=== PATIENT | female | born 1995 | race Caucasian/White ===

== ENCOUNTER 2019-12-17 18:53 | Emergency (ER) | payer MEDICAID, SELFPAY ==
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
[2019-12-17 19:18] VITALS: BP 130/84; PULSE 93; RESP 16; TEMP 37.1; O2SAT 100; BMI 37.3
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
[2019-12-17 19:25] VITALS: PULSE 86
[2019-12-17 20:45] VITALS: BP 123/75; PULSE 86; RESP 18; O2SAT 99
== END 2019-12-17 20:40 | disposition home or self-care (01) ==
PROVIDERS: Emergency Provider Physician Assistant; PCP Physician Assistant
DX: S90.32XA Contusion of left foot, initial encounter (principal); S90.31XA Contusion of right foot, initial encounter; W31.89XA Contact with other specified machinery, initial encounter
CPT/HCPCS: 12345; 73610; 73630; 99281

== ENCOUNTER 2020-07-10 11:31 | Outpatient (CLI) | payer MEDICAID, SELFPAY ==
--- NOTE | 2020-07-10 11:37 | MR_ITS ---
WS: [id number] MRI LUMBAR SPINE NONCONTRAST TECHNIQUE: Sagittal T1, T2 and STIR imaging. Axial T1 and T2 imaging. CLINICAL INFORMATION: LOW BACK PAIN W/RADIATION COMPARISON: None. FINDINGS: Mild lumbar curve. No acute compression. No high-grade central canal stenosis. Small amount of edema anterior superior corner T12 likely degenerative or inflammatory. No compression fractures. Tiny shal low protrusions in the lower thoracic spine at T10-T11 and T11-12. L1-L2: Normal. L2-L3: No significant disc bulging. Mild facet arthropathy. Spinal canal and foramen are patent. L3-L4: Slight annular bulging. Slight narrowing of the subarticular recess bilaterally. Mild facet ar thropathy. Spinal canal and foramen are patent. L4-L5: Mild annular bulging. Narrowing of the subarticular recess bilaterally. Moderate facet arthrop athy. Slight impingement on the traversing left L5 nerve root. Foramen are patent. L5-S1: Minimal annular bulging. Spinal canal and foramen are patent. Moderate facet arthropathy. Small central protrusions in the mid thoracic spine seen on the java android developer imaging more prominent at T5-6, T6-7, T7-8, T9-T10, and T10-11. This could be further evaluated with thoracic spine MRI if indicated . MR/MR lumbar spine wo con* [id number] IMPRESSION: 1. Mild lumbar curve. No acute compression. No high-grade central canal stenos is. 2. Mild annular bulging L4-5 with slight narrowing of the left greater than ri ght subarticular recess. Slight encroachment traversing left L5 nerve root. 3. Mild annular bulging L3-4 with slight narrowing of the subarticular recess bilaterally. 4. Moderate facet arthropathy L3-L5. 5. Small central protrusions in the mid thoracic spine seen on the java android developer imagi ng more prominent at T5-6, T6-7, T7-8, T9-T10, and T10-11. This could be furthe r evaluated with thoracic spine MRI if indicated.
== END 2020-07-10 11:32 | disposition home or self-care (01) ==
LOC: RADSHAW 11:36
PROVIDERS: PCP Physician Assistant; Visit Provider Physician Assistant
DX: M54.16 Radiculopathy, lumbar region (principal); M51.24 Other intervertebral disc displacement, thoracic region; M47.816 Spondylosis without myelopathy or radiculopathy, lumbar region
CPT/HCPCS: 72148

== ENCOUNTER → 2020-07-25 08:50 | Outpatient (BNVA) | payer MEDICAID, SELFPAY | PROVIDERS: PCP Physician Assistant; Referring Provider Physician Assistant; Visit Provider Anesthesiology Pain Medicine | DX: M54.9 Dorsalgia, unspecified (principal); M54.42 Lumbago with sciatica, left side; M47.816 Spondylosis without myelopathy or radiculopathy, lumbar region; M51.36 Other intervertebral disc degeneration, lumbar region; F17.210 Nicotine dependence, cigarettes, uncomplicated | CPT/HCPCS: 99205 ==

== ENCOUNTER → 2020-08-05 13:59 | Outpatient (BNVA) | payer MEDICAID, SELFPAY | PROVIDERS: PCP Physician Assistant; Visit Provider Anesthesiology Pain Medicine | DX: M47.816 Spondylosis without myelopathy or radiculopathy, lumbar region (principal); M54.9 Dorsalgia, unspecified; F17.210 Nicotine dependence, cigarettes, uncomplicated | CPT/HCPCS: 64493; 64494; 64495; J1040; J3490 ==

== ENCOUNTER → 2020-08-13 12:57 | Outpatient (BNVA) | payer MEDICAID, SELFPAY | PROVIDERS: PCP Physician Assistant; Referring Provider Physician Assistant; Visit Provider Podiatrist Foot & Ankle Surgery | DX: M25.572 Pain in left ankle and joints of left foot (principal) | CPT/HCPCS: 73630 ==

== ENCOUNTER 2020-09-24 12:01 | Outpatient (CLI) | payer MEDICAID, SELFPAY ==
[2020-09-24 13:06] LABS: Vitamin B12 246 pg/mL (232-1245)
== END 2020-09-24 12:02 | disposition home or self-care (01) ==
PROVIDERS: PCP Physician Assistant; Visit Provider Podiatrist Foot & Ankle Surgery
DX: G62.9 Polyneuropathy, unspecified (principal)
CPT/HCPCS: 36415; 82607

== ENCOUNTER → 2020-10-28 14:11 | Outpatient (BNVA) | payer MEDICAID, SELFPAY | PROVIDERS: PCP Physician Assistant; Referring Provider Podiatrist Foot & Ankle Surgery; Visit Provider Specialist | DX: R20.0 Anesthesia of skin (principal); R20.2 Paresthesia of skin; M79.671 Pain in right foot; M79.672 Pain in left foot; F17.200 Nicotine dependence, unspecified, uncomplicated | CPT/HCPCS: 95909 ==

== ENCOUNTER → 2020-11-07 09:16 | Outpatient (BNVA) | payer MEDICAID, SELFPAY | PROVIDERS: PCP Physician Assistant; Referring Provider Podiatrist Foot & Ankle Surgery; Visit Provider Specialist | DX: G62.89 Other specified polyneuropathies (principal); M79.671 Pain in right foot; M79.672 Pain in left foot; F17.200 Nicotine dependence, unspecified, uncomplicated | CPT/HCPCS: 95860; 99202 ==

== ENCOUNTER 2021-07-30 06:49 | Outpatient (CLI) | payer BC, MEDICAID, SELFPAY ==
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
== END 2021-07-30 06:50 | disposition home or self-care (01) ==
LOC: RAD 06:52
PROVIDERS: PCP Physician Assistant; Visit Provider Podiatrist Foot & Ankle Surgery
DX: M79.671 Pain in right foot (principal); M21.41 Flat foot [pes planus] (acquired), right foot; M77.31 Calcaneal spur, right foot
CPT/HCPCS: 73718

== ENCOUNTER → 2021-08-18 14:54 | Outpatient (BNVA) | payer BC, MEDICAID, SELFPAY | PROVIDERS: PCP Physician Assistant; Referring Provider Physician Assistant; Visit Provider Specialist | DX: R56.9 Unspecified convulsions (principal) | CPT/HCPCS: 95816 ==

== ENCOUNTER → 2021-08-20 13:14 | Outpatient (BNVA) | payer BC, MEDICAID, SELFPAY | PROVIDERS: PCP Physician Assistant; Visit Provider Podiatrist Foot & Ankle Surgery | DX: M79.671 Pain in right foot (principal); M21.611 Bunion of right foot; M21.612 Bunion of left foot; M79.672 Pain in left foot | CPT/HCPCS: 99213; 99214 ==

== ENCOUNTER 2021-09-04 10:22 | Outpatient (CLI) | payer BC, MEDICAID, SELFPAY ==
--- NOTE | 2021-09-04 10:42 | CT_ITS ---
WS: [id number] CT HEAD TECHNIQUE: Noncontrast and contrast-enhanced CT of the head. CLINICAL INFORMATION: SEIZURE LIKE ACTIVITY COMPARISON: None. DLP: [address] scans at [facility] use at least one of these dose optimization techniques: automated e xposure control; mA and/or kV adjustment per patient size (includes targeted exams where dose is matc hed to clinical indication); or iterative reconstruction. FINDINGS: No evidence of intracranial hemorrhage or mass effect. Ventricular system and basal cisterns are gerardo nt. No hydrocephalus. Normal garcia-white differentiation. Slight splaying of the fornices with thickening at the foramen of Monro. Enhancing focus in this area measuring 4.5 x 5.0 mm suspicious for colloid cyst. No hydrocephalus. Recommend further evaluation w ith MRI head without and with gadolinium enhancement for better anatomic detail. Paranasal sinuses and mastoid air cells well aerated. Normal visualized soft tissues. Incidental slig htly low-lying cerebellar tonsils. Normal 4th ventricle. CT/CT head wo/w con [id number] IMPRESSION: 1. Slight splaying columns of the fornices with slight soft tissue thickening in this area. This is more apparent on the post contrast imaging measuring 5 x 4.5 mm suspicious for a tiny colloid cyst. Recommend further evaluation with MR I without and with gadolinium enhancement and MRA head for better anatomic deta il. 2. No hydrocephalus. 3. No other suspicious findings.
[2021-09-04] MEDS: iohexol 350 mg/mL 100 mL Btl IV (11:52)
== END 2021-09-04 10:23 | disposition home or self-care (01) ==
LOC: RAD 10:23
PROVIDERS: PCP Physician Assistant; Visit Provider Physician Assistant
DX: R56.9 Unspecified convulsions (principal)
CPT/HCPCS: 70470

== ENCOUNTER 2021-09-24 18:39 | Emergency (ER) | payer BC, MEDICAID, SELFPAY ==
--- NOTE | 2021-09-24 18:40 | CTR_ITS ---
PROCEDURE INFORMATION: Exam: CT Head Without Contrast Exam date and time: 09/24/2021 6:57 PM Age: 26 years old Clinical indication: Pain; Headache; Patient HX: C/O migraine with dizziness. History of colloid cyst. ; Additional info: [place] TECHNIQUE: Imaging protocol: Computed tomography of the head without contrast. Radiation optimization: All CT scans at this facility use at least one of these dose optimization techniques: automated exposure control; mA and/or kV adjustment per patient size (includes targeted exams where dose is matched to clinical indication); or iterative reconstruction. COMPARISON: CT head wo/w con [id number] 09/04/2021 11:18 AM RADIATION DOSE METRICS: Total DLP (mGy-cm): 758.83 FINDINGS: Brain: Normal. No hemorrhage. Unremarkable white matter. No mass effect. Cerebral ventricles: No ventriculomegaly. Paranasal sinuses: Visualized sinuses are unremarkable. No fluid levels. Mastoid air cells: Visualized mastoid air cells are well aerated. Bones/joints: Unremarkable. No acute fracture. Soft tissues: Unremarkable. CT/CT head wo con* [id number] IMPRESSION: No acute intracranial abnormality.
[2021-09-24 19:21] VITALS: BP 160/92; PULSE 75; RESP 12; TEMP 37.3; O2SAT 98; BMI 39.6
--- NOTE | 2021-09-24 20:55 | W.ED.GENADLT ---
HPI - General Adult General: Chief complaint: Eye Problems Stated complaint: loss of vison/severe headache/nausea Time Seen by Provider: 09/24/21 20:20 History of Present Illness: 38-year-old female history of brain cyst presenting to the emergency room for evaluation of visual changes x48 hours. Patient reports transient bilateral hemianopsia for 15 minutes, symptoms of halos around both eyes, blurriness of vision and diplopia x 2 days. She denies any other neurological findings. Patient denies any trauma or injury to the head. Patient tells me at present presently she only has blurriness of vision but does not have those other complaints. Patient denies headache but reports nausea without vomiting. She has no other neurological complaints. She denies nauesea/vomiting, fever/chill, chest pain, shortness of breath, abdominal pain, dysuria/hematuria/polyuria, diarrhea/melena/hematochezia. Onset: 48 hrs ago Duration:transient lasting for 15 minutes at a time Location:home Severity:moderate Associated symptoms: Deny chest pain, dyspnea, nausea, rash, palpitations or vomiting Review of Systems Const: Denies: fever(s) or chills Eyes: Denies: change in vision ENMT: Reports: other (+transient diplopia, visual bluriness temporal hemianopsia b/l); Denies: mouth pain Card: Denies: chest pain or palpitations Resp: Denies: dyspnea or non-productive cough GI: Denies: abdominal pain, nausea, vomiting or diarrhea : Denies: dysuria Musc: Denies: extremity pain Skin/Breast: Denies: rash or new lesions Neuro: Denies: weakness in extremities Psych: Reports: other (Normal mood) Corona/Lymph: Denies: easy bruising [facility] ED PFSH: Medical History Brain cyst Family History Mother Bipolar 1 disorder Depression Father Degenerative disc disease, thoracic Alcohol abuse Methamphetamine abuse Social History Smoking and tobacco status: never smoked Alcohol intake: never Desire information about substance/drug rehabilitation?: No History of recent travel: No Physical Exam Const: COMMON NORMALS: alert HENMT: COMMON NORMALS: atraumatic HEAD & SCALP: atraumatic MOUTH: moist mucous membranes not abnormal Eye: COMMON NORMALS: EOMs intact bilaterally and conjunctivae normal CONJUNCTIVA: Yes conjunctivae normal OTHER: 20/40 b/l with prescriptions Neck/C-Spine: COMMON NORMALS: full ROM and supple Resp: COMMON NORMALS: normal respiratory effort and clear to auscultation bilaterally AUSCULTATION: clear to auscultation bilaterally Cardio: COMMON NORMALS: regular rate RATE: regular rate GI: COMMON NORMALS: Soft to palpation and non-tender PALPATION: Yes Soft to palpation Extremity: COMMON NORMALS: full ROM Neuro: SENSORIUM/ORIENTATION: Yes alert MOTOR EXAM: No Abnormal motor strength present and Other motor observations present (no focal motor deficits) OTHER: Mental status? Awake, alert, and oriented to self, year, month, location, and situation.? Following simple axial and appendicular commands.? Has appropriate fund of knowledge, comprehension, and insight.? Able to recall and understands pertinent aspects of medical history and current treatment status.? ? Language? Speech is fluent without word-finding difficulties.? 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 ? Cranial nerves? 2,3,4,6: PERRL, EOMI with no nystagmus. 5: Intact sensation to light touch, symmetric? 7: Smile symmetrical, no facial droop.? 8: Hearing grossly intact.? 9,10: Normal palate movement.? 11: Normal strength in trapezius bilaterally 12: Tongue protrudes midline.? ? Motor examination? Normal bulk & tone. Strength as follows (R/L): Delts (5/5), Biceps (5/5), Triceps (5/5), Wrist ext (5/5), hip flexors (5/5), plantarflexors (5/5), dorsiflexors (5/5). ? Sensation? Light Touch: Grossly intact and equal in upper and lower extremities bilaterally? Romberg: Negative.? Distal joint position sense intact ? Coordination? Isbdjv-lg-dhvd-finger movements intact without dysmetria or past-pointing.? Rapid fingertaps: preserved amplitude without decriment.? No tremor, myoclonus or truncal ataxia.? ? Gait/stance? Steady, normal narrow base gait with appropriate arm swing and turning.? Tandem gait without hesitation or loss of balance. Psych: COMMON NORMALS: speech normal SPEECH: Yes normal speech MOOD & AFFECT: Yes euthymic mood Course Vital Signs: Vital signs: Vital Signs Temperature 99.1 F 09/24/21 19:21 Pulse Rate 75 09/24/21 19:21 Respiratory Rate 12 09/24/21 19:21 Blood Pressure 160/92 09/24/21 19:21 Pulse Oximetry 98 09/24/21 19:21 MDM - General Adult Medical Decision Making 46-year-old female with history of brain cyst presents emergency room for evaluation of visual complaints including halos around the eyes, blurriness of vision, transient bitemporal hemianopsia x48 hrs. Neuro exam is intact. Visual acuity is 20/40 b/l. CT heed negative for any acute findings. I discussed case with Darell Holden who will tells that he would be agreeable to see patient at 830 to determine if patient has papilledema or other emergent occular causes of symptoms. She is given strict return precaution for any signs of visual blindness, diplopia, worsening visual symptoms, or any new external complaints Disposition: Discharge. Patient counseled regarding diagnostic impression, treatment plan. Patient given ED strict return precautions to return for continuation, worsening, or development of new symptoms. Instructed to f/u w/ Opthalmology regarding symptoms today. Patient verbalized understanding. Lab Data Radiology Impressions Head CT 09/24/21 18:40 IMPRESSION: No acute intracranial abnormality. Imaging Data Other Imaging: Radiologist's impression: [address] [place] [address] CT Scan Report Signed Patient: Dianna Lucero Unit #: [id number] : 1995 Age/Sex: 26 / F ADM Date: 09/24/21 Loc: ER Room/Bed: Attending Dr: Ordering Provider/Ordering MD: Melvin Chamberlain MD Date of Service: 09/24/21 Procedure(s): CT head wo con* [id number] Accession Number(s): [id number] Report Number: [id number] PROCEDURE INFORMATION: Exam: CT Head Without Contrast Exam date and time: 09/24/2021 6:57 PM Age: 26 years old Clinical indication: Pain; Headache; Patient HX: C/O migraine with dizziness. History of colloid cyst. ; Additional info: [place] TECHNIQUE: Imaging protocol: Computed tomography of the head without contrast. Radiation optimization: All CT scans at this facility use at least one of these dose optimization techniques: automated exposure control; mA and/or kV adjustment per patient size (includes targeted exams where dose is matched to clinical indication); or iterative reconstruction. COMPARISON: CT head wo/w con [id number] 09/04/2021 11:18 AM RADIATION DOSE METRICS: Total DLP (mGy-cm): 758.83 FINDINGS: Brain: Normal. No hemorrhage. Unremarkable white matter. No mass effect. Cerebral ventricles: No ventriculomegaly. Paranasal sinuses: Visualized sinuses are unremarkable. No fluid levels. Mastoid air cells: Visualized mastoid air cells are well aerated. Bones/joints: Unremarkable. No acute fracture. Soft tissues: Unremarkable. CT/CT head wo con* [id number] IMPRESSION: No acute intracranial abnormality. ? Dictated By: Luis Antonio Blake DO Signed By: Luis Antonio Blake DO Signed Date/Time: 09/24/211925 DD/ 56 Discharge Plan Discharge Patient Disposition: Home Clinical Impression: Visual blurriness, [place] Condition: Stable Prescriptions: No Action mecobalamin (vitamin B12) 10,000 mcg recon soln 10,000 mcg SUBCUT .MONTHLY 0RF Lexapro 20 mg Tablet 20 mg PO BEDTIME 0RF Discharge Orders: Discharge ED (Routine); Ordered 09/24/21 Ordered By: Case Leon Referrals: Leann Griffin PA [Primary Care Provider] - Discharge Diet: Advance as tolerated Discharge Activity: Increase activity as tolerated Activity Restrictions/Additional Instructions: Please follow-up tomorrow morning at 8:30am: [facility] [address] (next to ambulatory surgery) Please follow up with Darell Holden at 8:30am His office nuer is [phone] Come back to the emergency room he had double vision, vision loss, visual field deficits, or any new or concerning complaints Coding Level of Care Code ED Medical Assistant Ob Gyn for Ellen Fwd Exam Comprehensive
[2021-09-24 22:36] VITALS: PULSE 65; RESP 16; O2SAT 99
== END 2021-09-24 22:37 | disposition home or self-care (01) ==
PROVIDERS: Emergency Provider Emergency Medicine; PCP Physician Assistant
DX: H53.8 Other visual disturbances (principal); H53.459 Other localized visual field defect, unspecified eye
CPT/HCPCS: 70450; 99283

== ENCOUNTER 2021-10-13 14:36 | Outpatient (CLI) | payer BC, MEDICAID, SELFPAY ==
--- NOTE | 2021-10-13 14:45 | MR_ITS ---
WS: [id number] MRA HEAD TECHNIQUE: Axial 3-D TOF images obtained with axial images and axial, sagittal, and coronal 2-D refor matted images. CLINICAL INFORMATION: COLLOID CYST OF BRAIN COMPARISON: None. FINDINGS: Distal vertebral arteries are patent. Basilar artery is patent. Normal vascularity to the OUTSIDE SALES INSPECTOR territo ry bilaterally. Patent RIGHT posterior communicating artery. Both ICAs are patent at the skull base. Normal vascularity to the RAKEL and MCA territories bilaterally . No evidence of high-grade proximal stenosis or aneurysm. MR/MR angio head wo con [id number] IMPRESSION: 1. Normal intracranial MRA. 2. No evidence of flow-limiting stenosis or aneurysm.
--- NOTE | 2021-10-13 14:45 | MR_ITS ---
WS: [id number] MRI HEAD WITH CONTRAST TECHNIQUE: Sagittal T1, T2 axial, T2 axial FLAIR, axial susceptibility weighted imaging, axial diffus ion weighted images, and coronal T2 images were obtained. Pre and post-T1 axial and post T1 coronal i mages. ADC and FSPGR images. CLINICAL INFORMATION: COLLOID CYST OF BRAIN COMPARISON: CT September 04, 2021 FINDINGS: No evidence of mass or lesion at the foramen of Gann. Prominent vascularity and choroid p kamaljit in this area accounting for findings on the prior CT. No hydrocephalus. No suspicious findings. No evidence restricted diffusion to suggest acute ischemia. Ventricular system and basal cisterns are patent. 2 or 3 tiny foci of T2 hyperintensity in the periventricular and subcortical white matter of doubtful clinical significance but can be seen with migraine headaches. Normal posterior fossa. Norm al vascular flow voids at the skull base. No extra-axial fluid collections. No evidence of mass or ma ss effect. Mild mucosal thickening ethmoid air cells. Small amount of fluid LEFT maxillary sinus. Vis ualized orbits are normal. Retention cysts in the posterior nasopharynx. No hemosiderin on susceptibly weighted images. Normal optic chiasm and pituitary infundibulum. Tempor al lobes and hippocampal formations are normal in appearance. Normal cavernous sinuses and Meckel's c ave. No abnormal intracranial enhancement. Dural venous sinuses appear normal. MR/MR head wo/w con [id number] IMPRESSION: 1. Previously described possible colloid cyst described on CT is not seen toda y. Prominent vascularity and choroid plexus in this area accounts for the findi ngs on CT. Foramen of Monro is normal in appearance today. No suspicious findin gs. 2. 2 or 3 tiny foci of T2 hyperintensity in the periventricular and subcortica l white matter of doubtful clinical significance but can be seen with migraine headaches. 3. No hemosiderin on susceptibly weighted images. 4. No abnormal gadolinium enhancement. 5. Small amount of fluid in the LEFT maxillary sinus. 6. No other significant findings.
== END 2021-10-13 14:37 | disposition home or self-care (01) ==
PROVIDERS: PCP Physician Assistant; Visit Provider Physician Assistant
DX: D33.2 Benign neoplasm of brain, unspecified (principal)
CPT/HCPCS: 70544; 70553

== ENCOUNTER → 2021-11-19 10:31 | Outpatient (BNVA) | payer BC, MEDICAID, SELFPAY | PROVIDERS: PCP Physician Assistant; Visit Provider Podiatrist Foot & Ankle Surgery | DX: M21.611 Bunion of right foot (principal); M21.612 Bunion of left foot | CPT/HCPCS: 99213 ==

== ENCOUNTER → 2022-02-18 13:29 | Outpatient (BNVA) | payer BC, MEDICAID, SELFPAY | PROVIDERS: PCP Physician Assistant; Visit Provider Nurse Practitioner Women's Health | DX: O09.291 Supervision of pregnancy with other poor reproductive or obstetric history, first trimester; Z3A.00 Weeks of gestation of pregnancy not specified | CPT/HCPCS: 81025 ==

== ENCOUNTER → 2022-04-20 10:00 | Outpatient (BNVA) | payer BC, MEDICAID, SELFPAY | PROVIDERS: PCP Physician Assistant; Visit Provider Obstetrics & Gynecology | DX: O09.899 Supervision of other high risk pregnancies, unspecified trimester (principal) | CPT/HCPCS: 80307; 81000; 82950; 84443; 85027; 86592; 86762; 86803; 86850; 86900; 87086; 87340; 87491; 87591; 87661; 87806; 88175 ==

== ENCOUNTER → 2022-05-29 07:51 | Outpatient (BNVA) | payer BC, MEDICAID, SELFPAY | PROVIDERS: PCP Physician Assistant; Visit Provider Obstetrics & Gynecology | DX: O09.899 Supervision of other high risk pregnancies, unspecified trimester (principal); Z3A.00 Weeks of gestation of pregnancy not specified | CPT/HCPCS: 81000 ==

== ENCOUNTER → 2022-06-29 08:00 | Outpatient (BNVA) | payer BC, MEDICAID, SELFPAY | PROVIDERS: PCP Physician Assistant; Visit Provider Nurse Practitioner Women's Health | DX: O09.899 Supervision of other high risk pregnancies, unspecified trimester (principal); O09.291 Supervision of pregnancy with other poor reproductive or obstetric history, first trimester; O34.219 Maternal care for unspecified type scar from previous cesarean delivery; F31.9 Bipolar disorder, unspecified; R56.9 Unspecified convulsions; J45.909 Unspecified asthma, uncomplicated; O99.210 Obesity complicating pregnancy, unspecified trimester; O99.320 Drug use complicating pregnancy, unspecified trimester; Z3A.00 Weeks of gestation of pregnancy not specified | CPT/HCPCS: 81000 ==

== ENCOUNTER → 2022-07-27 11:47 | Outpatient (BNVA) | payer BC, MEDICAID, SELFPAY | PROVIDERS: PCP Physician Assistant; Visit Provider Obstetrics & Gynecology | DX: O09.899 Supervision of other high risk pregnancies, unspecified trimester (principal) | CPT/HCPCS: 81000; 82950; 85025; 87086 ==

== ENCOUNTER → 2022-08-10 09:59 | Outpatient (BNVA) | payer BC, MEDICAID, SELFPAY | PROVIDERS: PCP Physician Assistant; Visit Provider Obstetrics & Gynecology | DX: O09.899 Supervision of other high risk pregnancies, unspecified trimester (principal); R82.90 Unspecified abnormal findings in urine; Z3A.00 Weeks of gestation of pregnancy not specified | CPT/HCPCS: 81000; 87086 ==

== ENCOUNTER → 2022-08-24 13:52 | Outpatient (BNVA) | payer BC, MEDICAID, SELFPAY | PROVIDERS: PCP Physician Assistant; Visit Provider Obstetrics & Gynecology | DX: O09.899 Supervision of other high risk pregnancies, unspecified trimester (principal); O99.210 Obesity complicating pregnancy, unspecified trimester | CPT/HCPCS: 81000; 85025 ==

== ENCOUNTER → 2022-09-07 08:56 | Outpatient (BNVA) | payer BC, MEDICAID, SELFPAY | PROVIDERS: PCP Physician Assistant; Visit Provider Obstetrics & Gynecology | DX: O09.899 Supervision of other high risk pregnancies, unspecified trimester (principal); Z3A.30 30 weeks gestation of pregnancy | CPT/HCPCS: 81000 ==

== ENCOUNTER → 2022-09-14 14:20 | Outpatient (BNVA) | payer BC, MEDICAID, SELFPAY | PROVIDERS: PCP Physician Assistant; Visit Provider Obstetrics & Gynecology | DX: O09.899 Supervision of other high risk pregnancies, unspecified trimester (principal); Z3A.00 Weeks of gestation of pregnancy not specified | CPT/HCPCS: 81000; 87081 ==

== ENCOUNTER 2022-09-15 13:30 | Outpatient (CLI) | payer BC, MEDICAID, SELFPAY ==
[2022-09-15] VITALS (25 sets, daily range): BP systolic 133–194; BP diastolic 68–106; PULSE 54–86; TEMP 36.1; BMI 40.0
[2022-09-15] MEDS: lactated ringers 1,000 ML 999 ML IV (14:35)
[2022-09-15 14:46] LABS: Basophils # 0.1 10^3/uL (0.0-0.1); Basophils % 0.4 %; Eosinophils # 0.1 10^3/uL (0.0-0.8); Eosinophils % 0.5 %; Hematocrit 35.7 % (37.0-47.0); Hemoglobin 12.4 g/dL (11.5-15.3); Lymphocytes # 2.5 10^3/uL (0.8-4.8); Lymphocytes % 17.8 %; Mean Corpuscular HGB Conc 34.7 g/dL (30.0-36.0); Mean Corpuscular Hemoglobin 30.2 pg (28.0-34.0); Mean Corpuscular Volume 87.1 fl (81-99); Mean Platelet Volume 10.3 fL (7.4-10.4); Monocytes # 0.5 10^3/uL (0.2-0.9); Monocytes % 3.8 %; Neutrophils # 10.76 10^3/uL (1.8-7.7); Nucleated Red Blood Cells % 0 %; Platelet Count 229 10^3/cmm (130-400); Red Cell Distribution Width 12.5 % (12.1-15.1)
[2022-09-15 15:08] LABS: Alanine Aminotransferase 9 U/L (0-33); Albumin Level 3.5 g/dL (3.5-5.2); Alkaline Phosphatase 180 U/L (35-105); Anion Gap 14.2 (5-19); Aspartate Amino Transferase 13 U/L (0-32); Blood Urea Nitrogen 4 mg/dL (6-20); Calcium 8.1 mg/dL (8.5-10.5); Carbon Dioxide 20 mmol/L (22-29); Chloride 104 mmol/L (98-107); Globulin 2.8 g/dL (1.3-4.6); Glomerular Filtration Rate 188.7 mL/min (90-130); Glucose 77 mg/dL (65-115); Osmolality Calculated 276 mOsm/kg (285-295); Potassium 3.2 mmol/L (3.5-5.1); Sodium 135 mmol/L (136-145); Total Bilirubin 0.3 mg/dL (0.15-1.2); Total Protein 6.3 g/dL (6.6-8.7); Uric Acid 3.1 mg/dL (2.4-5.7)
[2022-09-15 16:03] LABS: Urine Creatinine 148 mg/dL (28-217)
[2022-09-15 16:06] LABS: Urine Protein Random 45 mg/dL
[2022-09-15 16:15] LABS: Blood Urine Neg (Negative); Glucose Urine UA Norm (Normal); Ketones Urine Negative (Negative); Nitrate Urine Negative (Negative); Protein Urine 1+ (Negative); Urine Appearance Clear (CLEAR); Urine Color Yellow (Yellow); pH Urine 6.5 (5-7)
[2022-09-15 16:16] LABS: Add Urine Culture? No; Add Urine Microscopic? YES; Bacteria Urine TRACE /hpf; Bilirubin Urine Neg (Negative); Leukocyte Esterase Urine Negative (Negative); Mucus Urine 1+ /hpf; RBC Urine 0-4 /hpf (0-2); Squamous Epithelial Cell Urine 0-4 /hpf (0-5); Urobilinogen Urine 1 mg/dL (Negative); WBC Urine 0-4 /hpf (0-5)
[2022-09-15] MEDS: dextrose 5%-lactated ringers 1,000 ML 125 ML IV (16:53)
[2022-09-15] MEDS: labetalol 5 mg/mL SDV 20mL 20 MG IVP (16:53)
[2022-09-15] MEDS: magnesium sulfate premix 4 GM/100 ML PREMIX IV (17:05)
--- NOTE | 2022-09-15 17:06 | P.TNLD_ITS ---
OB L&D Triage Visit Information: Date of evaluation: 10/01/22 Comments/Additional reason(s) for visit: Mrs. Marquez 27-year-old female with an estimated gestational age at 36+3. Came to L&D triage due to elevated blood pressures. Blood pressures noted in the severe range. Preeclampsia work-up ordered as noted below. Evaluation: Baseline heart rate: 140 Variability: Moderate (11-25) monitor accelerations: Present 15x15 monitor decelerations: None Cervical dilation (cm): 0 Cervical effacement (%): 0 station: -5 Laboratory results: Laboratory Tests 09/15/22 09/15/22 09/15/22 14:10 14:10 14:10 WBC 14.0 H RBC 4.10 Hgb 12.4 Hct 35.7 L MCV 87.1 MCH 30.2 MCHC 34.7 RDW 12.5 Plt Count 229 MPV 10.3 Neut % (Auto) 77.0 Lymph % (Auto) 17.8 Casey % (Auto) 3.8 Eos % (Auto) 0.5 Baso % (Auto) 0.4 Neut # (Auto) 10.76 H Lymph # (Auto) 2.5 Casey # (Auto) 0.5 Eos # (Auto) 0.1 Baso # (Auto) 0.1 Nucleated RBC % (a uto) 0 Nucleated RBCs # 0.0 Sodium Potassium Chloride Carbon Dioxide Anion Gap BUN Creatinine GFR Calculation Glucose Calculated Osmolal ity Uric Acid Calcium Total Bilirubin AST ALT Alkaline Phosphata se Total Protein Albumin Globulin Urine Color Yellow Urine Appearance Clear Urine pH 6.5 Ur Specific Gravit y 1.020 Urine Protein 1+ H Urine Glucose (UA) Norm Urine Ketones Negative Urine Blood Neg Urine Nitrate Negative Urine Bilirubin Neg Urine Urobilinogen 1 H Ur Leukocyte [place] ase Negative Urine RBC 0-4 H Urine WBC 0-4 H Ur Squamous Epith Cells 0-4 H Amorphous Sediment Not Reportable Urine Bacteria Trace Urine Mucus 1+ U Random Total Pro tein 45 Urine Creatinine 148 Protein/Creatinin Ratio 0.30 09/15/22 14:10 WBC RBC Hgb Hct MCV MCH MCHC RDW Plt Count MPV Neut % (Auto) Lymph % (Auto) Casey % (Auto) Eos % (Auto) Baso % (Auto) Neut # (Auto) Lymph # (Auto) Casey # (Auto) Eos # (Auto) Baso # (Auto) Nucleated RBC % (a uto) Nucleated RBCs # Sodium 135 L Potassium 3.2 L Chloride 104 Carbon Dioxide 20 L Anion Gap 14.2 BUN 4 L Creatinine 0.4 L GFR Calculation 188.7 H Glucose 77 Calculated Osmolal ity 276 L Uric Acid 3.1 Calcium 8.1 L Total Bilirubin 0.3 AST 13 ALT 9 Alkaline Phosphata se 180 H Total Protein 6.3 L Albumin 3.5 Globulin 2.8 Urine Color Urine Appearance Urine pH Ur Specific Gravit y Urine Protein Urine Glucose (UA) Urine Ketones Urine Blood Urine Nitrate Urine Bilirubin Urine Urobilinogen Ur Leukocyte [place] ase Urine RBC Urine WBC Ur Squamous Epith Cells Amorphous Sediment Urine Bacteria Urine Mucus U Random Total Pro tein Urine Creatinine Protein/Creatinin Ratio 0.30 Vital signs: Vital Signs - 24 hr 09/15/22 13:55 09/15/22 14:34 09/15/22 14:54 Temperature Pulse Rate 64 62 59 L Blood Pressure 161/91 168/88 194/90 09/15/22 15:15 09/15/22 15:36 09/15/22 15:44 Temperature 97.0 F L Pulse Rate 56 L 60 Blood Pressure 143/80 160/88 09/15/22 15:54 09/15/22 16:27 09/15/22 16:36 Temperature Pulse Rate 54 L 86 68 Blood Pressure 176/83 188/106 168/80 09/15/22 16:46 09/15/22 16:57 Temperature Pulse Rate 59 L 57 L Blood Pressure 155/79 149/80 Care RUBINA Calculator Estimated Delivery Date Method Current WG Current Estimate 10/10/22 LMP (Certain) 38w 5d Other Estimates 10/12/22 Ultrasound #1 38w 3d 10/10/22 Ultrasound #2 38w 5d Expected Delivery Route/Plan Mrs.. Lucero is a 27 year old established patient with LMP of 01/03/2022, RUBINA 10/10/2022 based off her LMP, placing her at 36-3/7 weeks gestation today. with elevated BP in severe range. Treated with hypertensive medication. Magnesium sulfate for seizures prophylaxis was started. Murocoll-2 related medications started for lung maturation. Antibiotics started due to GBS status unknown. Due to prematurity a transfer was recommended to a higher echelon of care. The patient elected to go to [facility] in [facility]. Hospitalist Dr. Neal from [facility] accepted the patient. Specific Issues/Plans * PREVIOUS C/S * HX OF PRE-ECLAMPSIA AT 38 WEEKS; PREVIOUS * BIPOLAR DISORDER-- managed with lexapro * SMOKER * MARIJUANA USE * SEIZURE-- last episode 12/2021 * OBESITY Final Diagnosis Final Diagnosis (1) Severe pre-eclampsia in third trimester: Plan: Transferred to [facility]. Status: Acute Code(s): O14.13 - Severe pre-eclampsia, third trimester Coding Level of Care Code Acute Code for Chg Fwd Diagnoses Severe pre-eclampsia in third trimester O14.13
[2022-09-15] MEDS: betamethasone susp 6 mg/mL 5 mL 12 MG IM (17:17)
[2022-09-15] MEDS: ampicillin 2,000 MG in sodium chloride 0.9% (plus) 50 ML 100 MG IV (17:33)
[2022-09-15] MEDS: magnesium sulfate premix 20 GM/500 ML BAG IV (17:35)
--- NOTE | 2022-09-15 18:54 | PC.NURSE ---
[facility] here for transport to [place], [place]
== END 2022-09-15 19:14 | disposition other institution (70) ==
LOC: OPOB 13:37 → OBGYN 13:37
PROVIDERS: PCP Physician Assistant; Visit Provider Obstetrics & Gynecology
DX: O14.13 Severe pre-eclampsia, third trimester (principal); Z3A.36 36 weeks gestation of pregnancy
CPT/HCPCS: 36415; 51702; 59025; 80053; 81001; 82570; 84156; 84550; 85025; 96372; 96374; 99211; J0290; J0702; J3475; J3490; J7120; J7121

== ENCOUNTER 2022-10-20 07:51 | Day surgery (SDC) | payer BC, MEDICAID, SELFPAY ==
[2022-10-19 13:34] VITALS: BMI 37.1
[2022-10-20] VITALS (11 sets, daily range): BP systolic 98–175; BP diastolic 57–107; PULSE 59–78; RESP 16–18; TEMP 36.2–36.7; O2SAT 92–98
[2022-10-20 08:21] LABS: OR HCG Qualitative Urine Negative (Negative)
[2022-10-20] MEDS: sodium chloride 0.9% 1,000 ML 30 ML IV (09:02)
[2022-10-20] MEDS: phenazopyridine 100 mg Tablet 200 MG PO (09:02)
[2022-10-20] MEDS: CELEcoxib 200 mg Capsule 400 MG PO (09:03)
[2022-10-20] MEDS: gabapentin 300 mg Capsule PO (09:03)
[2022-10-20] MEDS: scopolamine 1.5 Patch 1 PATCH TRANSDERMA (09:12)
[2022-10-20] MEDS: acetaminophen 1,000 MG/100 ML PIGGYBACK 400 MG IV (09:14)
--- NOTE | 2022-10-20 09:40 | W.PM.OPSUD ---
Surgery/Procedure H&P Update DATE OF PROCEDURE: October 20, 2022 DATE H&P PERFORMED: 10/15/22 H&P UPDATE INFORMATION: I have reviewed H&P completed within last 30 days, I have examined patient prior to procedure and No changes to prior documentation PREOP DIAGNOSIS: desires permanent sterilization PLANNED PROCEDURE: Operation Date: 10/20/22 09:25 Proposed Procedures p Laparoscopic bilateral salpingectomy 44120, Z30.2(Bilateral) - Tami Henson MD Related Problem List Diagnoses (1) Sterilization consult:
[2022-10-20] MEDS: ceFAZolin 2,000 MG in sodium chloride 0.9% (plus) 50 ML 100 MG IV (09:45)
--- NOTE | 2022-10-20 10:20 | ANES.PREANE2 ---
Pre-Anesthetic Assessment Height/Weight: Height 1.57 m Weight 92.079 kg Temp Pulse Resp BP Pulse Ox O2 Del Method 97.6 F 59 L 16 175/107 98 Room Air 10/20/22 08:04 10/20/22 08:04 10/20/22 08:04 10/20/22 08:04 10/20/22 08:04 10/20/22 08:07 Preop Diagnosis: desires permanent sterilization Operation Date: 10/20/22 09:25 Proposed Procedures p Laparoscopic bilateral salpingectomy 01095, Z30.2(Bilateral) - Tami Henson MD Familial anesthetic complications: none Was Beta Sara taken within 24 hours: Yes Was Clonidine taken within 24 hours: N/A Last intake: Intake Last Liquid Date 10/19/22 Last Liquid Time 21:20 Last Solid Date 10/19/22 Last Solid Time 21:30 Social No alcohol and No tobacco Exam alert, oriented x 3, clear to auscultation bilaterally and regular rate & rhythm Airway Submandibular: within normal limits Cervical ROM: within normal limits Mallampati: Class II Dentition: full Pulmonary Asthma CV/HEM Hypertension Metabolic Morbid Obesity [facility] Lower Back Pain and Osteoarthritis/DJD Neuropsych Bipolar Anesthetic Plan ASA status: 3 Anesthesia: General Medications/Allergies Home Medications Medication Instructions Recorded Confirmed Last Taken Type escitalopram oxalate 20 mg tablet 20 mg PO BEDTIME 09/24/21 10/19/22 10/19/22 History (Lexapro) PNV 153-FA 400 mcg-om3 35 mg-dha tab PO 02/18/22 10/15/22 10/19/22 History 25 mg-epa 5 mg-fish oil chew tablet ( Gummies) labetalol 200 mg tablet 200 mg PO BID #60 tabs 09/28/22 10/19/22 10/20/22 07:00 Rx albuterol sulfate 90 mcg/actuation inhalation 10/20/22 07/22/22 History aerosol inhaler (Ventolin HFA) Allergies Allergy/AdvReac Type Severity Reaction Status Date / Time asenapine [From Saphris] AdvReac Severe difficuty Verified 10/15/22 15:21 breating and hives Current Medications Generic Name Dose Route Start Last Admin Trade Name Freq PRN Reason Stop Dose Admin Sodium Chloride 1,000 mls @ 30 mls/hr 10/20/22 08:00 10/20/22 09:02 Sodium Chloride 0.9% IV 10/21/22 07:59 30 mls/hr .Q24H MISTY Administration PFSH Anesthesia Medical History Anxiety Asthma Bipolar 1 disorder Colloid cyst of brain (~2021) on MRI Depression No pertinent past medical history neghx: htn, dm, thyroid, dvt/pe PCP: Leann Griffin NP Peripheral neuropathy Surgical History History of carpal tunnel surgery Left - 04/2020 Right - 04/2021 Both performed at [facility] History of section 10/2018--LTCS-primary, emergent History of cholecystectomy History of tonsillectomy Previous delivery affecting [place] teeth removed Family History Mother Bipolar 1 disorder Depression Diabetes Hypertension Father Degenerative disc disease, thoracic Alcohol abuse Methamphetamine abuse Hypertension Family history of thyroid problem Grandfather Diabetes Paternal Hypertension Grandmother Diabetes Maternal Paternal Hypertension Brother Hypertension Family/Other Stroke Paternal aunt Heart disease paternal aunt Family history of thyroid problem Paternal aunt Denies family history of Hyperlipidemia Breast cancer Social History Substance/Drug Use: current Substance/Drug use frequency: daily Female Reproductive History Date of last menstrual period: 10/19/22 Data Anesthesia Cardiac Studies: No Data to Display
--- NOTE | 2022-10-20 10:52 | P.OP_ITS ---
Operative Report Date of procedure: October 20, 2022 Pre-op diagnosis: Preop Diagnosis desires permanent sterilization Post-op diagnosis: same Post-op findings: complete salpingectomy performed Procedure done: laparoscopic bilateral salpingectomy Specimens removed/disposition: bilateral fallopian tubes to pathology Surgeon: Tami Henson Anesthesia: General Estimated blood loss (mL): 5 IV fluids (mL): 1,300 Urine output (mL): 800 Complications: none Findings: normal appearing uterus, tubes and ovaries Condition: stable Disposition: PACU Procedure: The patient was taken to the operating room where general anesthesia was administered and found to be adequate. She was prepped and draped in the normal sterile fashion in the dorsal lithotomy position in [facility]. A Mead catheter was placed. A weighted speculum was placed into the vagina and the anterior lip of the cervix grasped with a single-tooth tenaculum. A [employer] uterine manipulator was placed. The gloves were changed and attention was turned to the laparoscopic portion of the case. A 5 mm LUQ incision was made. The verees needle was inserted with a snap. The hanging drop test was negative. I attempted to placed the 5 mm clearview trocar. I could only reach the subcutaneous fat. This site was abandoned and a 5 mm supraumbilical incision was made. The 5 mm trocar was placed using the easy view trocar. Intra-abdominal placement was confirmed and CO2 gas was used to insufflate the abdomen. Using direct visualization and illumination of the abdominal wall, two 5 mm incisions were made low and lateral. One on the left and one on the right. The 5mm trochars were then placed under direct visua lization. Using the uterine manipulator and the grasper, the fallopian tubes were identified. Using the laparoscopic cautery, the fallopian tube was clamped cauterized and cut. First on the right, then on the left. There was excellent hemostasis post removal of the bilateral tubes. Pictures were taken. All instruments were removed. The abdomen was desufflated. The incisions were closed with 4-0 Vicryl. The patient tolerated the procedure well. Sponge lap and needle counts were correct x3. She was taken to the recovery room in stable condition.
--- NOTE | 2022-10-20 11:08 | PM.DCS ---
Discharge Providers Date of Admission: 10/20/22 Date of Discharge: October 20, 2022 Attending Provider at Discharge: Tami Henson MD Primary Care Provider: Leann Griffin Diagnoses at Discharge Discharge Diagnosis (1) Sterilization consult: Status: Acute Reason for Visit Reason for Visit: 63470 Z30.2 Hospital Course Hospital Course The patient was admitted for surgery. she did well postoperatively and was ready for discharge. Physical Exam Urinary Catheter Management: Mead: Cath Placed During This Visit: yes Urinary Catheter Date of Insertion: 10/20/22 Urinary Catheter Time of Insertion: 10:16 Discharge Data Studies Completed and Pending Pending at discharge Category Date Time Status Urine Culture Routine Lab 10/20/22 10:17 Received Pathology: Surgical [PTH] Routine Pth 10/20/22 10:58 Ordered Laboratory Results Urine HCG, Qual Negative (Negative) 10/20/22 08:20 Vitals Last Vital Signs Temp 97.6 F 10/20/22 08:04 Pulse 65 10/20/22 11:03 Resp 16 10/20/22 11:03 BP 98/57 10/20/22 11:03 Pulse Ox 98 10/20/22 11:03 O2 Del Method Simple Mask 10/20/22 11:03 O2 Flow Rate 8 10/20/22 11:04 Discharge Plan Discharge Patient Disposition: Home Condition: Stable Prescriptions: New hydrocodone-acetaminophen 5-325 mg tablet 1 tab PO Q4H Qty: 30 0RF Colace 100 mg capsule 100 mg PO BID Qty: 60 0RF Continued Gummies 400 mcg-35 mg- 25 mg-5 mg tablet,chewable PO labetalol 200 mg tablet 200 mg PO BID Qty: 60 5RF escitalopram oxalate [Lexapro] 20 mg Tablet 20 mg PO BEDTIME albuterol sulfate [Ventolin HFA] 90 mcg/actuation HFA aerosol inhaler INHALATION Discharge Orders: Discharge Order (Routine); Ordered 10/20/22 Ordered By: Tami Henson Discharge Attestations Time Spent in Discharge Care*: less than 30 min Quality Metrics Clinical Quality Measures [ No reported AMI, CVA or VTE this stay] Coding Level of Care Code Acute Code for Chg Fwd Diagnoses Sterilization consult Z30.09
--- NOTE | 2022-10-20 13:43 | ANE.PACU2 ---
Inpatient post-anesthesia follow up: Airway intact: Yes Vital signs: Temperature 98.0 F Pulse Rate 67 Respiratory Rate 16 Blood Pressure 146/98 Pulse Oximetry 98 Oxygen Delivery Me thod Room Air Oxygen Flow Rate 8 Fraction of Inspir ed Oxygen Hydration adequate: Yes Nausea and vomiting: No Pain level: 3 Mental status: Baseline
== END 2022-10-20 12:55 | disposition home or self-care (01) ==
PROVIDERS: Anesthesiology; PCP Physician Assistant; Visit Provider Obstetrics & Gynecology
PROC: (CPT 58661; principal; 2022-10-20 09:15)
DX: Z30.2 Encounter for sterilization (principal); J45.909 Unspecified asthma, uncomplicated
CPT/HCPCS: 58661; 81025; 84703; 87086; 88302; J0131; J0330; J0690; J1100; J1200; J2371; J2405; J2704; J3010; J3490; J7030

== ENCOUNTER → 2023-01-26 11:15 | Outpatient (BNVA) | payer BC, SELFPAY | PROVIDERS: PCP Physician Assistant; Visit Provider Nurse Practitioner | DX: I10 Essential (primary) hypertension (principal); F31.9 Bipolar disorder, unspecified; E53.8 Deficiency of other specified B group vitamins; E88.810 Metabolic syndrome | CPT/HCPCS: 80053; 80061; 82607; 84443 ==

== ENCOUNTER 2023-02-15 11:24 | Outpatient (CLI) | payer MEDICAID, SELFPAY ==
--- NOTE | 2023-02-15 11:45 | US_ITS ---
WS: [id number] RENAL ULTRASOUND HISTORY: I10 - Essential (primary) hypertension COMPARISON: None available. TECHNIQUE: 2-D and color Doppler imaging of the kidney submitted. Right kidney: 11.0 cm x 5.6 cm x 5.1 cm. Cortex: 1.3 cm Normal echogenicity with no hydronephrosis or mass. Left kidney: 11.1 cm x 5.4 cm x 5.2 cm. Cortex: 1.7 cm Normal echogenicity with no hydronephrosis or mass. Aorta: Normal. Urinary Bladder: Normal distention. IMPRESSION: Normal renal ultrasound.
== END 2023-02-15 11:25 | disposition home or self-care (01) ==
LOC: RAD 11:24
PROVIDERS: PCP Physician Assistant; Visit Provider Nurse Practitioner
DX: I10 Essential (primary) hypertension (principal)
CPT/HCPCS: 76770

== ENCOUNTER → 2023-03-10 14:59 | Outpatient (BNVA) | payer BC, MEDICAID, SELFPAY | PROVIDERS: PCP Physician Assistant; Visit Provider Nurse Practitioner | DX: I10 Essential (primary) hypertension (principal); E88.810 Metabolic syndrome; F31.9 Bipolar disorder, unspecified; G47.00 Insomnia, unspecified; E53.8 Deficiency of other specified B group vitamins; R10.10 Upper abdominal pain, unspecified; R07.9 Chest pain, unspecified; Z82.49 Family history of ischemic heart disease and other diseases of the circulatory system | CPT/HCPCS: 80053; 82607; 86003 ==

== ENCOUNTER → 2023-03-16 15:05 | Outpatient (BNVA) | payer MEDICAID, SELFPAY | PROVIDERS: PCP Physician Assistant; Visit Provider Nurse Practitioner | DX: J06.9 Acute upper respiratory infection, unspecified (principal); G47.00 Insomnia, unspecified | CPT/HCPCS: 87426 ==

== ENCOUNTER 2023-04-09 08:59 | Outpatient (CLI) | payer BC, MEDICAID, SELFPAY ==
--- NOTE | 2023-04-09 09:15 | US_ITS ---
WS: [id number] RIGHT UPPER QUADRANT ULTRASOUND HISTORY: R74.01 - Elevation of levels of liver transaminase levels COMPARISON: None available. Liver: 13.8 cm in length. Normal size liver and echogenicity. No bile duct dilatation or mass. Portal Vein: Normal hepatopetal flow with monophasic waveform. Gallbladder: Prior cholecystectomy. CBD: 0.3 cm Pancreas: Limited. Right kidney: 9.8 cm in length. Normal size and echogenicity. No hydronephrosis or mass. Aorta and IVC: Unremarkable abdominal aorta and IVC. No ascites. IMPRESSION: Unremarkable RIGHT upper quadrant ultrasound. Limited evaluation of the pancreas.
== END 2023-04-09 09:00 | disposition home or self-care (01) ==
LOC: RAD 09:00
PROVIDERS: PCP Physician Assistant; Visit Provider Nurse Practitioner
DX: R74.01 Elevation of levels of liver transaminase levels (principal)
CPT/HCPCS: 76705